=== PATIENT | male | born 1945 | race Caucasian/White ===

== ENCOUNTER → 2018-05-19 13:18 | Outpatient (CLI) | payer MEDICARE, OTHER, SELFPAY ==
--- NOTE | 2018-05-19 | DI.MRI.S_ITS ---
PROCEDURE: MR STROKE Pre- and post-contrast brain MRI, non-contrast brain MR angiogram, pre- and postcontrast neck MR angiogram INDICATIONS: TIA TECHNIQUE: Brain: Noncontrast axial T1 spin echo, axial T2 fast spin echo, sagittal and axial FLAIR, coronal T2 fast spin echo, axial gradient echo, axial diffusion and ADC through the brain. After the administration of contrast, axial 3D VIBE of the cranial vasculature and brain. Brain MRA: Non-contrast 3-D time of flight MR angiogram, with multiple qlltirb-ytwbztorr-ukhvtwtxrz (MIP) reformats performed. Neck MRA: Axial and sagittal TruFISP through the neck. Coronal dynamic MR angiogram during administration of contrast in the arterial and venous phases, with 3-dimenstional zxctpdz-hnfeenwkf-upqsskdped (MIP) reformats constructed from subtraction images. COMPARISON: None. FINDINGS: Image quality: Excellent. BRAIN: CSF spaces: Ventricles are normal in size and shape. Basal cisterns are patent. No extra-axial fluid collections. Brain: No intracranial bleeds or mass effects. Beach-white matter interface is normal. Diffusion weighted images show no acute ischemic insults. No GRE weighted abnormalities identified the brain parenchyma. Chronic, small, right lobe is pallidus/smith radiata lacunar infarct. Scattered punctuate areas of increased T2 signal noted in the subcortical and periventricular white matter compatible with moderate chronic microvascular ischemic changes. There is mild, diffuse cerebral volume loss. Brainstem appears normal. Normal intravascular flow voids are present. Dural sinuses demonstrate normal postcontrast enhancement. No abnormal intracranial enhancement. Skull and face: Calvarial marrow signal is normal. Orbits appear normal. Sinuses: Mild mucosal thickening noted in the right maxillary sinus. Fluid noted in the left mastoid air cells. Right mastoid air cells are clear. BRAIN MR ANGIOGRAM: Anterior circulation: Intracranial internal carotid arteries are normal in size and enhancement. The flow within the paired anterior cerebral arteries is normal and symmetric. The flow within the middle cerebral arteries is normal and symmetric. The anterior communicating artery is seen. No stenoses, occlusions, or aneurysms. Posterior circulation: There is absence of flow in the proximal V4 segment of the left vertebral artery. There is reconstitution of flow signal in the distal V4 segment of the left vertebral artery likely related to retrograde flow. Scattered atherosclerotic irregularity causing multifocal moderate and severe stenoses noted in the V4 segment of the left vertebral artery. Patient is vertebral artery dominant. There is normal flow signal in the intracranial right vertebral artery. Normal flow signal noted in the basilar artery. The flow within the posterior cerebral arteries is normal and symmetric. No cerebral aneurysms. NECK MR ANGIOGRAM: Carotids: Great vessels demonstrate a conventional anatomy as they arise from the aortic arch. The origins of the common carotid arteries appear patent. Atherosclerotic irregularity noted in the origin of the left common carotid artery which causes moderate stenosis. Right common carotid artery appears fully patent. The courses of both common carotid arteries are normal. The bifurcation regions appear normal bilaterally. The internal carotid arteries demonstrate normal course and caliber. Posterior circulation: The left vertebral artery is occluded at its origin. There is reconstitution of flow in the intracranial distal V4 segment of the left vertebral artery. Atherosclerotic irregularity noted at the origin of the right vertebral artery which causes moderate to severe stenosis. There is normal flow in the right vertebral artery distal to the origin stenosis. More superior portions of both vertebral arteries demonstrate normal course and caliber, and join to form a normal appearing basilar artery. Miscellaneous: Subclavian arteries appear patent. Pre-contrast images through the neck show no soft tissue abnormalities. IMPRESSION: BRAIN MRI: 1. No acute intracranial disease process. 2. No areas of acute infarction. 3. Chronic, small, right globus pallidus/right smith radiata lacunar infarct. 4. Mild, diffuse cerebral volume loss. 5. Moderate periventricular and subcortical white matter chronic microvascular ischemic changes. 6. Fluid in the left mastoid air cells. Please correlate with direct physical findings to differentiate mastoiditis from serous fluid. BRAIN MR ANGIOGRAM: 1. 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 There is reconstitution of flow in the distal V4 segment the left vertebral artery likely representing retrograde flow. Scattered moderate and severe atherosclerotic stenoses noted in the V4 segment the left vertebral artery. 2. Otherwise, normal MR exam of the head. NECK MR ANGIOGRAM: 1. The internal carotid arteries are fully patent bilaterally. 2. Moderate atherosclerotic stenosis of the origin of the left common carotid artery. 3. 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 4. Moderate to high-grade stenosis of the origin of the right vertebral artery. Patient is right vertebral artery dominant. Dictated by: Mary Nunez MD, PhD on 05/19/2018 at 17:09 Approved by: Mary Nunez MD, PhD on 05/19/2018 at 17:22
== END ==
PROVIDERS: Visit Provider Psychiatry & Neurology Neurology
DX: G45.9 Transient cerebral ischemic attack, unspecified (principal); I65.03 Occlusion and stenosis of bilateral vertebral arteries; I65.22 Occlusion and stenosis of left carotid artery
CPT/HCPCS: 70553; A9579

== ENCOUNTER → 2018-11-22 09:53 | Outpatient (CLI) | payer MEDICARE, OTHER, SELFPAY ==
--- NOTE | 2018-11-22 09:59 | DI.RAD.S_ITS ---
PROCEDURE: XR LUMBAR SPINE MIN 4V INDICATIONS: Low back pain with left lower extremity symptoms TECHNIQUE: 4 views of the lumbar spine were acquired. COMPARISON: Outside Film, CT, CT ABDOMEN PELVIS WITH CONTRAST, 03/12/2018, 18:50. FINDINGS: Bones: 5 nonrib-bearing vertebrae are present. There is avjb-ff-zjquacac dextroscoliosis of thoracolumbar spine centered at T12-L1 level. Suggestion of grade 1 anterolisthesis of L4 on L5 is seen unchanged from prior study. Degenerative disc disease throughout lumbar spine is noted. No vertebral body compression fractures. No suspicious bony lesions. Soft tissues: Overlying bowel gas pattern is normal. No suspicious soft tissue calcifications. Oblique images: No gross pars defects. There is suggestion of bilateral neural foramina narrowing at L3-4 and L4-5 levels. IMPRESSION: Mild scoliosis of thoracolumbar spine. Grade 1 anterolisthesis of L4 on L5. No acute compression fracture. Degenerative disc disease throughout lumbar spine. No gross pars defect. Dictated by: Bert Bauman M.D. on 11/22/2018 at 11:58 Approved by: Bert Bauman M.D. on 11/22/2018 at 12:00
--- NOTE | 2018-11-22 09:59 | DI.RAD.S_ITS ---
PROCEDURE: XR HIP W PEL IF DONE LT MIN 4V INDICATIONS: Low back pain with left lower extremity symptoms TECHNIQUE: AP pelvis with lateral view(s) of the bilateral hip(s). COMPARISON: None. FINDINGS: Bones: Symmetric appearing bilateral hip joint osteoarthritis is seen. Osteoarthritic change is also seen in bilateral sacroiliac joints and symphysis pubis. No fractures or dislocations. Pelvic ring appears intact. No evidence of femoral head avascular necrosis. No suspicious bony lesions. Soft tissues: The visualized bowel gas pattern is normal. No suspicious soft tissue calcifications. IMPRESSION: Symmetric bilateral hip joint osteoarthritis. No fracture or dislocation. No evidence of avascular necrosis. Dictated by: Bert Bauman M.D. on 11/22/2018 at 12:01 Approved by: Bert Bauman M.D. on 11/22/2018 at 12:01
== END ==
PROVIDERS: PCP Family Medicine; Visit Provider Physical Medicine & Rehabilitation
DX: M25.552 Pain in left hip (principal); M16.0 Bilateral primary osteoarthritis of hip; M54.5 Low back pain; M51.16 Intervertebral disc disorders with radiculopathy, lumbar region; M41.85 Other forms of scoliosis, thoracolumbar region; M43.16 Spondylolisthesis, lumbar region; M47.817 Spondylosis without myelopathy or radiculopathy, lumbosacral region; M41.50 Other secondary scoliosis, site unspecified
CPT/HCPCS: 72110; 73522; 99215

== ENCOUNTER → 2018-11-23 18:51 | Outpatient (CLI) | payer MEDICARE, OTHER, SELFPAY ==
--- NOTE | 2018-11-23 18:55 | DI.MRI.S_ITS ---
PROCEDURE: MR LUMBAR SPINE WO CON INDICATIONS: Low back pain with left lower extremity radicular TECHNIQUE: Noncontrast sagittal T1 spin echo and T2 fast echo, sagittal STIR, axial T1 and T2 fast spin echo through the lumbar spine. In cases with scoliosis, additional coronal T2 fast spin echo may be performed. COMPARISON: [facility], CR, XR LUMBAR SPINE MIN 4V, 11/22/2018, 10:10. FINDINGS: Image quality: Excellent. Alignment and Curvature: There is grade I L4-L5 anterolisthesis secondary to facet hypertrophy. There is approximately 17? of convex right lumbar spine scoliosis. Bone Marrow: Reactive endplate change is noted adjacent to the L1-L2, L2-L3, L3-L4 and L4-L5 discs. No acute vertebral body compression fractures. Spinal Cord: Conus medullaris terminates at the L1-2 disc level. Visualized cord demonstrates normal signal and size. Paraspinous Soft Tissues: No paravertebral masses. L1-L2: Loss of disc signal and mild loss of disc height. Large central/left central disc extrusion. Extruded disc material extends superiorly along the posterior margin of the L1 vertebral body. Extruded disc material impinges upon the traversing nerve roots of the cauda equina. Mild bilateral facet hypertrophy. Moderate to severe narrowing of the central canal. Moderate right and severe left neural foraminal narrowing with compression of the exiting left L1 nerve root. L2-L3: Loss of disc signal and height. Large central disc extrusion. Extruded disc material extends superiorly along the posterior margin of the L2 vertebral body to the level of the L1-L2 disc. Extruded disc material abuts and slightly displaces the traversing nerve roots of the cauda equina. Mild bilateral facet hypertrophy. Moderate narrowing of the central canal. Moderate bilateral neural foraminal narrowing. L3-L4: Loss of disc signal and height. Mild, diffuse disc bulge. Small central disc protrusion. Mild to moderate bilateral facet hypertrophy. Moderate narrowing of the central canal. Moderate right and anygkkwo-qi-peengi left neural foraminal narrowing. No neural impingement. L4-L5: Loss of disc signal. Minimal, diffuse disc bulge. Severe right and moderate left facet hypertrophy. Mild to moderate narrowing of the central canal. Severe right and moderate left neural foraminal narrowing with compression of the exiting right L4 nerve root. L5-S1: Loss of disc signal. Mild, diffuse disc bulge. Mild bilateral facet hypertrophy. No central stenosis. Severe right neural foraminal narrowing with compression of the exiting right L5 nerve root. IMPRESSION: 1. Convex-right scoliosis. 2. Grade I L4-L5 degenerative spondylolisthesis. 3. Multilevel degenerative disc disease. 4. Multilevel facet arthropathy. 5. Large L1-L2 disc extrusion and large L2-L3 disc extrusion. Extruded disc material impinges upon the traversing nerve roots of the cauda equina. 6. Moderate to severe L1-L2 Central canal narrowing. Moderate L2-L3 at L3-L4 central canal narrowing. Mskb-he-hverqgce L4-L5 central canal narrowing. 7. Moderate right and severe left L1-L2 neural foraminal narrowing. Severe right and moderate left L4-L5 neural foraminal narrowing. Severe right L5-S1 neural foraminal narrowing. Moderate right and moderate to severe left L3-L4 neural foraminal narrowing. Moderate bilateral L2-L3 neural foraminal narrowing. Dictated by: Mary Nunez MD, PhD on 11/24/2018 at 15:52 Approved by: Mary Nunez MD, PhD on 11/24/2018 at 16:04
== END ==
PROVIDERS: PCP Family Medicine; Visit Provider Physical Medicine & Rehabilitation
DX: M51.16 Intervertebral disc disorders with radiculopathy, lumbar region (principal); M51.17 Intervertebral disc disorders with radiculopathy, lumbosacral region; M47.26 Other spondylosis with radiculopathy, lumbar region; M47.27 Other spondylosis with radiculopathy, lumbosacral region; M48.061 Spinal stenosis, lumbar region without neurogenic claudication; M48.07 Spinal stenosis, lumbosacral region; M43.16 Spondylolisthesis, lumbar region; M41.86 Other forms of scoliosis, lumbar region
CPT/HCPCS: 72148

== ENCOUNTER 2018-12-19 11:52 | Outpatient (CLI) | payer MEDICARE, OTHER, SELFPAY ==
[2018-12-19] VITALS (9 sets, daily range): BP systolic 137–202; BP diastolic 60–96; PULSE 64–74; RESP 16–17; TEMP 36.4; O2SAT 95–100
--- NOTE | 2018-12-19 11:54 | DI.RAD.S_ITS ---
PROCEDURE: PAIN L INTERLAMINAR/CAUDAL INJ INDICATIONS: SPONDYLOSIS FINDINGS: Fluoroscopic spot filming was performed to verify placement of spinal needles at the L1-L2 level(s), as labeled on the films. Appropriate location(s) of the needle tip(s) was confirmed by injection of iodinated contrast. Dictated by: Mak Zelaya M.D. on 12/19/2018 at 14:21 Approved by: Mak Zelaya M.D. on 12/19/2018 at 14:21
[2018-12-19] MEDS: MIDAZOLAM 5 MG/5 ML VIAL IV (12:53)
[2018-12-19] MEDS: fentaNYL 100 MCG/2 ML INJ 50 MCG IV (12:53)
[2018-12-19] MEDS: BUPIVACAINE 0.25% (PF) VIAL 2 ML INJ (13:03)
[2018-12-19] MEDS: DEXAMETHASONE 10 MG/ML VIAL 20 MG INJ (13:04)
[2018-12-19] MEDS: BETAMETHASONE 30 MG/5 ML MDV 6 MG INJ (13:04)
[2018-12-19] MEDS: IOPAMIDOL 15 ML VIAL 3 ML INJ (13:04)
--- NOTE | 2018-12-19 13:06 | PC.NURSE ---
ASSISTING PT OFF TABLE WITH HTN WHICH DO BILLOW IS AWARE OF BUT OTHERWISE IN STABLE CONDITION.
--- NOTE | 2018-12-19 13:08 | P.PCN_ITS ---
Procedures Date/Time Date of procedure: 12/19/18 Time of procedure: 13:07 General Procedure description: POST OP DIAGNOSIS 1. HNP WITH RADICULAR FEATURES, 2. MULTILEVEL CENTRAL STENOSIS, PROCEDURES 1. FLUORSCOPICALLY GUIDED CONTRAST CONTROLLED INTERLAMINAR EPIDURAL STEROID INJECTION - L1/2 PHYSICIAN: Primitivo Noriega, INDICATIONS Regino is referred by for treatment of Bilateral Foraminal Stenosis L>R LE symptoms. FINDINGS Multilevel Central Spinal Stenosis with Nerve Root Compression DESCRIPTION OF PROCEDURE Fluoroscopically guided, contrast-controlled L1/2 translaminar epidural steroid injection. Following review of allergy and review of potential side effects and complications, including, but not necessarily limited to, infection, allergic reaction, local tissue breakdown, temporary as well as permanent nerve injury, paralysis, stroke and possible , the patient indicated that the patient understood and agreed to proceed. An informed consent document was signed by the patient, witnessed by a nurse, and placed in the patient's chart. Additionally, other treatment options including modalities, medications, and physical therapy were reviewed with the patient. After review of previous anaesthesic history and IV conscious sedation the patient was deemed safe to proceed with todays procedure with IV conscious sedation as ASA class II designation. Safety time-out was performed to confirm patient ID, procedure to be performed and site of procedure. IV sedation was accomplished with a combination of 2mg of Versed and 50mcg of Fentanyl was administered by the RN after DO order, titrated to patient comfort during the course of the procedure while the patient remained responsive to all verbal commands In the prone position, following sterile prep and drape of the lumbar region, the L1/2 translaminar space was identified fluoroscopically. The skin was anesthetized via a 25-gauge, 1.5-inch needle with 1% lidocaine solution. At this point, a 22-gauge short bevel spinal needle was atraumatically introduced and advanced under fluoroscopic guidance into the region of the L1/2 translaminar space. Depth was confirmed on lateral view. Radiological data, including multiple fluoroscopic views of the lumbar spine, reveal a spinal needle at the L1/2 translaminar space. Lateral views then show placement of the needle in the epidural space. Subsequent views show contrast material flowing superiorly and inferiorly in the epidural space. No vascular or intrathecal uptake is observed. At this point, using loss of resistance technique with saline and air, the epidural space was entered. This was confirmed following negative aspiration with injection of approximately 1.5 cc of Isovue 200, showing excellent epidural flow without vascular or intrathecal uptake. At this point, 1 cc of 1% lidocaine solution combined with 2cc or 20mg of dexamethasone was injected without incident. The patient tolerated the procedure well without signs or symptoms of complications prior to transfer to the recovery area continued monitoring without incident. The patient was then transferred to the recovery area where they were observed for an appropriate period of time after the injection. The patient reported a VAS score of 9 prior to the procedure and a post- procedure VAS of 3. Total Fluoroscopy Time: 11.8 seconds Total Conscious Sedation Time: 24min POST OP INSTRUCTIONS The patient was provided a Pain Log to continue to record their response to the target-specific procedure prior to follow-up visit with their referring physician. Additionally, specific post-injection care instructions and a contact number to our office were provided if concerns arise regarding possible complications associated with the procedure are suspected. Primitivo Noriega DO
--- NOTE | 2018-12-19 13:16 | PC.NURSE ---
Pt returned from procedure awake and alert via wheelchair and able to get from w/c to chair with standby assist. Resumed monitoring from Mary COELHO.
== END 2018-12-19 13:46 ==
LOC: RAD 11:53
PROVIDERS: PCP Family Medicine; Visit Provider Physical Medicine & Rehabilitation
DX: M51.16 Intervertebral disc disorders with radiculopathy, lumbar region (principal); M48.061 Spinal stenosis, lumbar region without neurogenic claudication
CPT/HCPCS: 62323; 99152; J0702; J1100; J2250; J3010

== ENCOUNTER 2019-03-08 14:16 | Outpatient (CLI) | payer MEDICARE, OTHER, SELFPAY ==
[2019-03-08] VITALS (8 sets, daily range): BP systolic 159–203; BP diastolic 84–112; PULSE 61–70; RESP 15–20; TEMP 37.3; O2SAT 97–100
--- NOTE | 2019-03-08 14:23 | DI.RAD.S_ITS ---
PROCEDURE: PAIN L/S TRANSFORAMINAL INJECT INDICATIONS: SPONDYLOSIS FINDINGS: Fluoroscopic spot filming was performed to verify placement of spinal needles at the L1-L2 level(s), as labeled on the films. Appropriate location(s) of the needle tip(s) was confirmed by injection of iodinated contrast. IMPRESSION: Fluoroscopy for pain management. Dictated by: Ren Zamora M.D. on 03/08/2019 at 17:41 Approved by: Ren Zamora M.D. on 03/08/2019 at 17:41
[2019-03-08] MEDS: MIDAZOLAM 5 MG/5 ML VIAL IV (15:38)
--- NOTE | 2019-03-08 15:38 | PC.NURSE ---
MD AWARE OF HIGH BP OF 215/86 PRE-PROCEDURE. PT STATED HE HAS HAD HIGH BP'S FOR PAST FEW WEEKS DUE TO PAIN. MD DECIDED IT WAS SAFE TO CONTINUE WITH PROCEDURE.
[2019-03-08] MEDS: BETAMETHASONE 30 MG/5 ML MDV 6 MG INJ (15:46)
[2019-03-08] MEDS: BUPIVACAINE 0.25% (PF) VIAL 2 ML INJ (15:46)
[2019-03-08] MEDS: fentaNYL 100 MCG/2 ML INJ 50 MCG IV (15:46)
[2019-03-08] MEDS: IOPAMIDOL 15 ML VIAL 3 ML INJ (15:46)
[2019-03-08] MEDS: DEXAMETHASONE 10 MG/ML VIAL 20 MG INJ (15:46)
--- NOTE | 2019-03-08 15:49 | PC.NURSE ---
BP OF 194/112 NOTED DURING MED ADMINISTRATION TO PROC SITE. NOTIFIED, 50MCG OF FENTANYL GIVEN RT PT C/O INCREASED 10/10 PAIN
--- NOTE | 2019-03-08 15:58 | P.PCN_ITS ---
Procedures Date/Time Date of procedure: 03/08/19 Time of procedure: 15:58 General Procedure description: Operative Note PREOP DIAGNOSIS 1. FORAMINAL STENOSIS WITH LE SYMPTOMS, POST OP DIAGNOSIS 1. FORAMINAL STENOSIS WITH LE SYMPTOMS, PROCEDURES 1. FLUOROSCOPICALLY GUIDED CONTRAST CONTROLLED TRANSFORAMINAL EPIDURAL STEROID INJECTION - LEFT L1/2 TFESI SURGEON: Primitivo Noriega, DO INDICATIONS Regino is referred by Dr. Whitley for treatment of Foraminal Stenosis with left LE Symptoms FINDINGS Foraminal Nerve Root Compression secondary to disc disease and facet hypertrophy DESCRIPTION OF PROCEDURE Following review of allergy and review of potential side effects and complications, including, but not necessarily limited to, infection, allergic reaction, local tissue breakdown, stroke, temporary or permanent nerve injury, paralysis, and possible , the patient indicated that the patient understood and agreed to proceed. An informed consent document was signed by the patient, witnessed by a nurse, and placed in the patient's chart. Additionally, other treatment options including medications, modalities, and physical therapy were reviewed with the patient. After review of previous anaesthesic history and IV conscious sedation the patient was deemed safe to proceed with todays procedure with IV conscious sedation as ASA class II designation. Safety time-out was performed to confirm patient ID, procedure to be performed and site of procedure. IV sedation was accomplished with a combination of 1mg of Versed and 50mcg of Fentanyl was administered by the RN after DO order, titrated to patient comfort during the co urse of the procedure while the patient remained responsive to all verbal commands In the prone position following sterile prep and drape of the lumbar region, the left L1/2 posterior neuroforamen was identified fluoroscopically. The skin was anesthetized via a 25-gauge 1.5-inch needle with 1% lidocaine solution. At this point, a 25-gauge 3.5-inch spinal needle was atraumatically introduced and advanced under fluoroscopic guidance through the posterior left L1/2 neuroforamen to approximately the anterior aspect of the canal. Depth was confirmed on lateral view. Following negative aspiration, injection of approximately 1.5 cc of Isovue 200 under live fluoroscopy in the AP view confirmed excellent flow along the nerve root, into the epidural space without vascular or intrathecal uptake observed Radiological data, including multiple fluoroscopic views of the lumbosacral spine, reveal a spinal needle at the left L1/2 posterior neuroforamen. Subsequent views show flow of contrast material flowing superiorly and inferiorly along the nerve root confirming epidural flow. Subsequently, a test dose of 1.5 cc of 1% lidocaine solution was administered and patient was observed for two minutes for signs or symptoms of complications, including abdominal pain, shortness of breath, bilateral upper or lower extremity weakness, nausea and vomiting, prior to steroid injection. At this point, a total of 2cc or 20mg of dexamethasone and 6mg of betamethasone was injected without incident. The patient tolerated the procedure well without signs or symptoms of complications prior to transfer to the recovery area continued monitoring without incident. The patient was then transferred to the recovery area where they were observed for an appropriate time after the injection. The patient reported a VAS score of 10 prior to the procedure and a post-procedure VAS of 4. Total Fluoroscopy Time: 24.2 seconds Total Conscious Sedation Time: 24min POST OP INSTRUCTIONS The patient was provided a Pain Log to continue to record their response to the target-specific procedure prior to follow-up visit with their referring physician. Additionally, specific post-injection care instructions and a contact number to our office were provided if concerns arise regarding possible complications associated with the procedure are suspected. Primitivo Noriega DO Complications: none Complications: none
== END 2019-03-08 16:25 ==
LOC: RAD 14:22
PROVIDERS: Family Provider Family Medicine; PCP Family Medicine; Visit Provider Physical Medicine & Rehabilitation
DX: M48.061 Spinal stenosis, lumbar region without neurogenic claudication (principal); M51.16 Intervertebral disc disorders with radiculopathy, lumbar region
CPT/HCPCS: 64483; 99152; J0702; J1100; J2250; J3010